=== PATIENT | male | born 1950 | race Caucasian/White ===

== ENCOUNTER 2022-09-13 08:17 | Emergency (ER) | payer OTHER, SELFPAY ==
[2022-09-13] VITALS (18 sets, daily range): BP systolic 125–144; BP diastolic 86–92; PULSE 81–97; RESP 20; TEMP 36.3; O2SAT 82–95; BMI 34.6
--- NOTE | 2022-09-13 08:41 | ED.GENADULT ---
HPI - General Adult General Chief complaint: Abdominal Pain Stated complaint: abdominal pain,bad taste in mouth Time Seen by Provider: 09/13/22 08:24 Source: patient Mode of arrival: ambulatory Limitations: no limitations History of Present Illness HPI narrative: [age] year male coming in today complaining of abdominal pain for approximately 2 days. States that the pain is located around the belly button area. Pain is constant but gets worse in waves. Nothing seems to make it better or worse. Has not been eating very much the last couple days because he has had a decreased appetite. He has a strong saw our taste in his mouth. States that about 1 week ago he was sick for about 2 days with diarrhea and hot and cold flashes. This seems to have resolved however the abdominal pain then started. He denies any blood in his urine or stools. He denies any urinary symptoms such as increased frequency urgency or dysuria. Has not been vomiting. He feels nauseated because of the taste in his mouth. He denies any fevers or chills in the last couple of days. Last bowel movement was yesterday and was firm and small. He is passing gas normally. He denies intra-abdominal surgeries in the past. Past medical history significant for obesity, hypertension, GERD, hyperlipidemia, allergies. Related Data Home Medications Medication Instructions Recorded Confirmed amlodipine 5 mg tablet 5 mg PO DAILY 09/13/22 09/13/22 azelastine 137 mcg (0.1 %) nasal 2 spray intranasal BID PRN 09/13/22 09/13/22 spray aerosol cetirizine 10 mg capsule (Zyrtec) 10 mg PO DAILY PRN 09/13/22 09/13/22 cholecalciferol (vitamin D3) 50 50 mcg PO DAILY 09/13/22 09/13/22 mcg (2,000 unit) capsule (Vitamin D3) hydrochlorothiazide 12.5 mg tablet 12.5 mg PO DAILY 09/13/22 09/13/22 losartan 100 mg tablet 100 mg PO DAILY 09/13/22 09/13/22 meloxicam 7.5 mg tablet 7.5 mg PO DAILY 09/13/22 09/13/22 pantoprazole 40 mg tablet,delayed 40 mg PO DAILY 09/13/22 09/13/22 release simvastatin 40 mg tablet 40 mg PO DAILY 09/13/22 09/13/22 Allergies Allergy/AdvReac Type Severity Reaction Status Date / Time codeine Allergy Verified 09/13/22 09:34 Penicillins Allergy Verified 09/13/22 09:34 Review of Systems Status of ROS: Reports: 10 or more systems reviewed and unremarkable except as noted in History and below [facility] Social History Smoking Status: Former smoker Do you use any of these nicotine containing products: None Second hand tobacco smoke exposure: No How often do you have a drink containing alcohol: 2-4 times a month How many standard drinks containing alcohol do you have on a typical day: 1 or 2 How often do you have six or more drinks on one occasion: Never AUDIT-C Alcohol total score: 2 Non-prescribed substance use: denies use Exam Narrative: Exam Narrative: Obese, well-developed patient in no acute distress. Alert and oriented. Answers questions appropriately. Mood and affect are appropriate. Thoughts are goal oriented and rational. No tangential or magical thinking noted. Patient speaks in full sentences without needing to catch his breath. HEENT: Normocephalic atraumatic. Pupils are equally round reactive to light. Extraocular muscles are intact. Conjunctivae are moist without any icterus noted. Moist mucous membranes. Posterior pharynx is normal. Neck is soft without any lymphadenopathy or thyromegaly. No masses are appreciated. Cardiovascular: Heart is regular rate and rhythm S1 and S2 are present without any murmurs. Lungs: Clear to auscultation bilaterally no wheezes rhonchi or rales are appreciated. Patient takes deep breaths without any discomfort. Abdomen: Protuberant and soft. He has normal bowel sounds. He has left lower quadrant tenderness. He does have tenderness around the umbilicus and the right lower quadrant however the tenderness in the left lower quadrant is more significant. He has no epigastric tenderness, negative Mosley sign. Extremities: Bilateral lower extremities are without edema. Normal DP and PT pulses. Skin: Well perfused without any obvious rashes. Const: Vital Signs, click to edit/add: Vital Signs - 24 hr 09/13/22 08:24 09/13/22 08:37 09/13/22 08:47 Temperature 97.3 F L Pulse Rate 91 Pulse Rate [Pulse Oximeter] 91 Respiratory Rate 20 Blood Pressure 133/90 H Blood Pressure [Le ft Upper Arm] 144/92 H Pulse Oximetry 94 92 Oxygen Delivery Me thod Room Air 09/13/22 09:05 09/13/22 09:30 09/13/22 09:31 Temperature Pulse Rate 97 86 84 Pulse Rate [Pulse Oximeter] Respiratory Rate Blood Pressure 136/90 H Blood Pressure [Le ft Upper Arm] Pulse Oximetry 95 91 88 Oxygen Delivery Me thod 09/13/22 10:00 09/13/22 10:02 09/13/22 10:56 Temperature Pulse Rate 87 89 86 Pulse Rate [Pulse Oximeter] Respiratory Rate Blood Pressure 137/87 Blood Pressure [Le ft Upper Arm] Pulse Oximetry 82 L 94 93 Oxygen Delivery Me thod 09/13/22 11:00 09/13/22 11:01 Temperature Pulse Rate 89 88 Pulse Rate [Pulse Oximeter] Respiratory Rate Blood Pressure 131/90 H Blood Pressure [Le ft Upper Arm] Pulse Oximetry 92 93 Oxygen Delivery Me thod Course Course Hospital Course: Lab work was unremarkable. Abdominal CT scan showed liver lesions and lower lung lesions consistent with inflammatory changes versus neoplasm. When I discussed these findings with the patient he tells me that his primary care provider once thought he had tuberculosis. This could certainly reflect what we are seeing a scans today. I did do a lung CT for further imaging of the lungs. That shows multiple ground-glass lesions scattered throughout the lungs and a repeat CT scan is recommended. As far as abdominal pain nothing visualized to explain his discomfort. We discussed that likely with his diarrhea he could have continued abdominal cramping and we discussed symptomatic treatment at this time. Vital Signs Vital signs: Initial Vital Signs Temperature 97.3 F L 09/13/22 08:24 Temperature Source Temporal Artery Scan 09/13/22 08:24 Pulse Rate 91 09/13/22 08:24 Pulse Rhythm Regular 09/13/22 08:24 Respiratory Rate 20 09/13/22 08:24 Blood Pressure 144/92 H 09/13/22 08:24 Blood Pressure Mean 109 09/13/22 08:24 Blood Pressure Position Semi-Fowlers 09/13/22 08:24 Pulse Oximetry 94 09/13/22 08:24 Oxygen Delivery Method Room Air 09/13/22 08:24 Vital Signs Temperature 97.3 F L 09/13/22 08:24 Pulse Rate 91 09/13/22 08:24 Respiratory Rate 20 09/13/22 08:24 Blood Pressure 144/92 H 04/07/23 08:24 Pulse Oximetry 94 09/13/22 08:24 Oxygen Delivery Method Room Air 09/13/22 08:24 Temperature 97.3 F L 09/13/22 08:24 Pulse Rate 88 09/13/22 11:01 Respiratory Rate 20 09/13/22 08:24 Blood Pressure 131/90 H 09/13/22 11:01 Pulse Oximetry 93 09/13/22 11:01 Oxygen Delivery Method Room Air 09/13/22 08:24 Medical Decision Making MDM Narrative Medical decision making narrative: 71-year-old male with abdominal pain of unclear etiology. We discussed symptomatic treatment for now. We discussed reasons for follow-up. Patient will be discharged home with his labs and reports of his imaging follow-up with his primary care provider to discuss next steps. Patient was agreeable and had no other questions. Lab Data Lab results reviewed: Yes I reviewed the patient's lab results Labs: Lab Results 09/13/22 09/13/22 Range/Units 08:50 08:55 WBC 5.20 (4.50-11.00) K/uL RBC 5.11 (4.30-5.90) m/uL Hgb 15.8 (13.5-17.5) gm/dL Hct 46.6 (37.0-53.0) % MCV 91 (80-100) fL MCH 31 (26-34) pg MCHC 34 (32-36) gm/dL RDW Coeff of [place] 12.3 (11.5-15.5) % Plt Count 160 (140-440) K/uL Neut % (Auto) 54.8 (42.0-72.0) % Lymph % (Auto) 34.4 (20-44) % [place] % (Auto) 10.2 (0.0-11.0) % Eos % (Auto) 0.2 (0.0-7.0) % Baso % (Auto) 0.2 (0.0-3.0) % Neut # (Auto) 2.85 (1.7-7.0) K/uL Lymph # (Auto) 1.79 (0.90-2.90) K/uL [place] # (Auto) 0.50 (0.00-0.90) K/UL Eos # (Auto) 0.01 (0.00-0.50) K/uL Baso # (Auto) 0.01 (0.00-0.30) K/uL ESR 9 (2-15) mm/hr Sodium 134 L (135-149) mmol/L Potassium 3.6 (3.6-5.1) mmol/L Chloride 100 (96-114) mmol/L Carbon Dioxide 27 (20-32) mmol/L BUN 22 (7-30) mg/dL Creatinine 1.2 (0.5-1.5) mg/dL Estimated Creat Clear 56.46 Estimated GFR 65 ml/min Glucose 101 (60-115) mg/dL Lactate 1.0 (0.5-1.9) mmol/L Calcium 9.1 (8.4-10.6) mg/dL Total Bilirubin 0.5 (0.1-1.5) mg/dL Direct Bilirubin 0.2 (0.0-0.5) mg/dL AST 39 H (12-35) U/L ALT 32 (4-50) U/L Alkaline Phosphatase 54 (40-150) U/L C-Reactive Protein 2.0 H (0.5-1.0) mg/dL Total Protein 7.3 (6.0-8.3) g/dL Albumin 4.2 (3.3-5.0) g/dL Lipase 209 (23-300) U/L Urine Color Yellow (Yellow) Urine Appearance Clear (Clear) Urine pH 6.0 (5.0-8.5) Ur Specific [place] 1.025 (1.000-1.030) Urine Protein Negative (Negative) Urine Glucose (UA) Negative (Negative) Urine Ketones Negative (Negative) Urine Blood Trace-intact A (Negative) Urine Nitrite Negative (Negative) Urine Bilirubin Negative (Negative) Urine Urobilinogen 0.2 (0.2-1.0) Ur Leukocyte Esterase Negative (Negative) Urine RBC 0-2 (0-2) Urine WBC 0-2 (0-5) Ur Squamous Epith Cells None (None-Few) Urine Bacteria None (None) Imaging Data CT scan - abdomen: Attestation: I have reviewed the pertinent imaging results. Radiologist's impression: CT abdomen and pelvis acquired with 100 cc Isovue 370 IV contrast. COMPARISON: None. FINDINGS: Lower chest: There are multifocal ground-glass nodules/opacities measuring up to 1.5 centimeters in diameter. Differential diagnosis includes infectious, inflammatory and neoplastic processes. Pulmonology consultation and follow-up CT scan in 3-6 months as per Fleischner criteria guidelines is recommended. Liver: There is a 12 millimeters cyst within the left hepatic lobe (image 22, series 2). There are 2 other low-density lesions within the left hepatic lobe which are too small to accurately characterize. There is a focal area of hypoenhancement within the anterior segment of the right hepatic lobe. This measures approximately 4.5 centimeters x 1.5 centimeters (images 17 through 25, series 2). Differential diagnosis includes focal hepatic steatosis as well as other focal hepatic lesions including neoplasm. Further evaluation with nonemergent MRI of the liver is recommended. Gallbladder and bile ducts: Unremarkable. No stones or inflammation. No biliary dilatation. Pancreas: Unremarkable. No mass or inflammation. Spleen: Unremarkable. Normal in size. No masses. Adrenal glands: Unremarkable. No nodules. Kidneys: Symmetric enhancement of both kidneys. 12 millimeter right renal cyst. Too small to accurately characterize low-density lesions within the left kidney interpolar region and lower pole. No renal stone or hydronephrosis. GI tract: Diverticulosis of the distal descending and sigmoid colon. No diverticulitis or colitis. The stomach and small bowel are unremarkable. Normal appendix. Vasculature: Abdominal aorta is normal in caliber. Mesenteric arteries are patent. Lymph nodes: No lymphadenopathy. Peritoneum/Abdominal Wall: No abdominal pelvic mass, free fluid or free intraperitoneal air. There is a small left inguinal hernia containing fat. No bowel containing hernia. Pelvis: The urinary bladder and prostate are unremarkable. Bones: Degenerative spondylosis of the lumbar spine and degenerative arthrosis of both hips. No acute fracture or suspicious bone lesion. IMPRESSION: 1. Bilateral basilar multifocal ground-glass lung nodules/opacities. Differential diagnosis includes infectious, inflammatory and neoplastic processes. Pulmonology consultation and follow-up CT scan in 3-6 months as per Fleischner criteria guidelines is recommended. 2. Hepatic cyst and too small to accurately characterize hepatic low-density lesions. 3. Focal hypoenhancement within the anterior segment of the right hepatic lobe measuring 4.5 centimeter x 1.7 centimeter. Differential diagnosis includes focal hepatic steatosis as well as other focal hepatic lesions including neoplasm. Further evaluation with nonemergent MRI of the liver is recommended. 4. Left renal cyst and too small to accurately characterize left renal low-density lesions. 5. Colonic diverticulosis. 6. Left inguinal hernia containing fat. CT scan - chest: Attestation: I have reviewed the pertinent imaging results. Radiologist's impression: CT chest without contrast. COMPARISON: CT scan of the abdomen and pelvis 09/13/2022. FINDINGS: Lungs and pleura: There are numerous ground-glass nodules/focal opacities scattered throughout both lungs. These measure up to 2 centimeters in diameter and are most prominent in the lower lung zones. No solid pulmonary nodule or pulmonary consolidation is identified. No pleural effusions, pleural thickening, or pneumothorax. Heart and vasculature: Heart size is normal. Thoracic aorta and pulmonary artery are normal in caliber. Mild atherosclerosis of the thoracic aorta. Lymph nodes/mediastinum: There are small and mildly prominent mediastinal noncalcified lymph nodes and small calcified subcarinal lymph nodes. No hilar lymphadenopathy. No axillary lymphadenopathy. Chest wall: No masses. Upper abdomen: Indeterminate hepatic low-density lesions. Please refer to abdominopelvic CT report. Bones: No acute bone or joint abnormality. 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 IMPRESSION: 1. Numerous bilateral ground-glass nodules/focal opacities scattered throughout both lungs. Differential diagnosis includes infectious, inflammatory and neoplastic processes. Pulmonology consultation and follow-up CT scan in 3-6 months as per Fleischner criteria guidelines is recommended. 2. Small and mildly prominent noncalcified mediastinal and small calcified subcarinal lymph nodes. Discharge Plan Discharge Clinical Impression: Abdominal pain Patient Disposition: Home, Self-Care Condition: Stable Additional Instructions: Your blood work was unremarkable today showing no evidence of infection or organ dysfunction. Your scans did show some lesions on the lungs and liver, he unfortunately I do not have anything to compare this to. So I do want you to take these reports back to your primary care provider and discuss the results and discuss next steps if any are necessary. He will be given a copy of your scan reports as well as all your lab work done today. Prescriptions: No Action losartan 100 mg tablet 100 mg PO DAILY meloxicam 7.5 mg tablet 7.5 mg PO DAILY azelastine 137 mcg (0.1 %) aerosol,spray 2 spray intranasal BID PRN Rx Instructions: administer into each nostril Zyrtec 10 mg capsule 10 mg PO DAILY PRN pantoprazole 40 mg tablet,delayed release (DR/EC) 40 mg PO DAILY hydrochlorothiazide 12.5 mg tablet 12.5 mg PO DAILY simvastatin 40 mg tablet 40 mg PO DAILY amlodipine 5 mg tablet 5 mg PO DAILY cholecalciferol (vitamin D3) [Vitamin D3] 50 mcg (2,000 unit) capsule 50 mcg PO DAILY Follow Up/Referrals: Provider,Not a Local [Primary Care Provider] - Stand Alone Forms: [employer] Info Instructions
[2022-09-13 09:02] LABS: Basophils Absolute Auto 0.01 K/uL (0.00-0.30); Basophils Percent Auto 0.2 % (0.0-3.0); Eosinophils Absolute Auto 0.01 K/uL (0.00-0.50); Eosinophils Percent Auto 0.2 % (0.0-7.0); Hematocrit 46.6 % (37.0-53.0); Hemoglobin* 15.8 gm/dL (13.5-17.5); Immature Granulocytes Abs Auto 0.01 K/uL (0.00-0.30); Immature Granulocytes Pct Auto 0.2 %; Lymphocytes Absolute Auto 1.79 K/uL (0.90-2.90); Lymphocytes Percent Auto 34.4 % (20-44); Mean Corpuscular HGB Conc 34 gm/dL (32-36); Mean Corpuscular Hemoglobin 31 pg (26-34); Mean Corpuscular Volume 91 fL (80-100); Monocytes Percent Auto 10.2 % (0.0-11.0); Neutrophils Absolute Auto 2.85 K/uL (1.7-7.0); Neutrophils Percent Auto 54.8 % (42.0-72.0); Platelet Count* 160 K/uL (140-440); RDW Coefficient of Variation % 12.3 % (11.5-15.5); Red Blood Count 5.11 m/uL (4.30-5.90)
[2022-09-13 09:08] LABS: Appearance Urine Clear (Clear); Bilirubin Urine Negative (Negative); Blood Urine Trace-intact (Negative); Color Urine Yellow (Yellow); Glucose Urine Negative (Negative); Ketones Urine Negative (Negative); Leukocyte Esterase Urine Negative (Negative); Nitrite Urine Negative (Negative); Protein Urine Negative (Negative); Specific Gravity Urine 1.025 (1.000-1.030); Urobilinogen Urine 0.2 (0.2-1.0)
[2022-09-13] MEDS: 0.9 % SODIUM CHLORIDE 500 ML 500 ML IV (09:08)
[2022-09-13 09:15] LABS: Slide Review Reflex No
[2022-09-13 09:19] LABS: Albumin* 4.2 g/dL (3.3-5.0); Chloride* 100 mmol/L (96-114)
[2022-09-13 09:20] LABS: Potassium* 3.6 mmol/L (3.6-5.1); Sodium* 134 mmol/L (135-149)
[2022-09-13 09:22] LABS: Creatinine* 1.2 mg/dL (0.5-1.5); Est. Creatinine Clearance* 56.46; Estimated Glomerular Filt Rate 65 ml/min
[2022-09-13 09:23] LABS: Alanine Aminotransferase* 32 U/L (4-50); Alkaline Phosphatase* 54 U/L (40-150); Aspartate Amino Transferase* 39 U/L (12-35); Bilirubin Direct* 0.2 mg/dL (0.0-0.5); Bilirubin Total* 0.5 mg/dL (0.1-1.5); Blood Urea Nitrogen* 22 mg/dL (7-30); Calcium* 9.1 mg/dL (8.4-10.6); Carbon Dioxide* 27 mmol/L (20-32); Glucose* 101 mg/dL (60-115); Lipase* 209 U/L (23-300); Total Protein* 7.3 g/dL (6.0-8.3)
[2022-09-13 09:25] LABS: RBC Urine 0-2 (0-2); WBC Urine 0-2 (0-5)
[2022-09-13 10:06] LABS: Erythrocyte SedimentationRate* 9 mm/hr (2-15)
--- NOTE | 2022-09-13 10:55 | CRLHL7_ITS ---
For Patients: As a result of the Century Cures Act, medical imaging exams and procedure reports are released immediately into your electronic medical record. You may view this report before your referring provider. If you have questions, please contact your health care provider. INDICATION: Pulmonary lesions seen on recent abdominal CT. TECHNIQUE: CT chest without contrast. COMPARISON: CT scan of the abdomen and pelvis 09/13/2022. FINDINGS: Lungs and pleura: There are numerous ground-glass nodules/focal opacities scattered throughout both lungs. These measure up to 2 centimeters in diameter and are most prominent in the lower lung zones. No solid pulmonary nodule or pulmonary consolidation is identified. No pleural effusions, pleural thickening, or pneumothorax. Heart and vasculature: Heart size is normal. Thoracic aorta and pulmonary artery are normal in caliber. Mild atherosclerosis of the thoracic aorta. Lymph nodes/mediastinum: There are small and mildly prominent mediastinal noncalcified lymph nodes and small calcified subcarinal lymph nodes. No hilar lymphadenopathy. No axillary lymphadenopathy. Chest wall: No masses. Upper abdomen: Indeterminate hepatic low-density lesions. Please refer to abdominopelvic CT report. Bones: No acute bone or joint abnormality. 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 IMPRESSION: 1. Numerous bilateral ground-glass nodules/focal opacities scattered throughout both lungs. Differential diagnosis includes infectious, inflammatory and neoplastic processes. Pulmonology consultation and follow-up CT scan in 3-6 months as per Fleischner criteria guidelines is recommended. 2. Small and mildly prominent noncalcified mediastinal and small calcified subcarinal lymph nodes. Please note that all CT scans at this facility use dose modulation, iterative reconstruction, and/or weight-based dosing when appropriate to reduce radiation dose to as low as reasonably achievable. Dictated by Shane Mcgrath MD @ 09/13/2022 12:25:38 PM (Electronically Signed)
== END 2022-09-13 13:03 | disposition home or self-care (01) ==
PROVIDERS: Emergency Provider Family Medicine
DX: R10.9 Unspecified abdominal pain (principal)
CPT/HCPCS: 36415; 71250; 74177; 80048; 80076; 81001; 83605; 83690; 85025; 85651; 86140; 87086; 99284; J7120; Q9967

== ENCOUNTER 2022-09-19 10:03 | Emergency (ER) | payer OTHER, SELFPAY ==
[2022-09-19] VITALS (14 sets, daily range): BP systolic 133–146; BP diastolic 78–99; PULSE 77–91; RESP 18–20; TEMP 36.4; O2SAT 92–97; BMI 34.7
--- NOTE | 2022-09-19 10:26 | CRLHL7_ITS ---
For Patients: As a result of the Cures Act, medical imaging exams and procedure reports are released immediately into your electronic medical record. You may view this report before your referring provider. If you have questions, please contact your health care provider. INDICATION: Abdominal pain. COMPARISON: CT abdomen and pelvis with intravenous contrast September 13, 2022. TECHNIQUE: CT abdomen and pelvis with intravenous contrast semi: Coronal and sagittal reformats. FINDINGS: Multiple patchy alveolar infiltrates both lung bases much more pronounced when compared to September 13, 2022; COVID-19 pneumonia need to be considered. No evidence of pleural effusion. Normal size cardiac silhouette without any evidence of pericardial effusion. Multiple small cystic lesions in the dome of the liver ;stable in appearance. No focal hepatic or splenic pathology. No pancreatic pathology. Gallbladder is unremarkable. No adrenal pathology. No kidney stones or obstructive uropathy. No retroperitoneal lymphadenopathy. Normal appendix. Diverticulosis sigmoid colon without any CT evidence of diverticulitis or abscess. No pneumoperitoneum or intestinal obstruction. IMPRESSION: 1. Patchy alveolar infiltrates both lung bases highly suggestive of COVID-19 pneumonia. 2. No kidney stones or obstructive uropathy. 3. Normal appendix. 4. Diverticulosis sigmoid colon without any CT evidence of diverticulitis or abscess. Please note that all CT scans at this facility use dose modulation, iterative reconstruction, and/or weight-based dosing when appropriate to reduce radiation dose to as low as reasonably achievable. Dictated by Lovely Chavez MD @ 09/19/2022 12:30:58 PM (Electronically Signed)
--- NOTE | 2022-09-19 10:34 | ED.NAVMDI ---
HPI - Nausea/Vomiting/Diarrhea General Chief complaint: Nausea/Vomiting Stated complaint: Vomiting, abdominal pain Time Seen by Provider: 09/19/22 10:03 History of Present Illness HPI Narrative: Patient is a 71-year-old gentleman who is here 6 days ago with abdominal pain nausea and vomiting. He was evaluated in no acute etiologies were noted. Patient did have some ground-glass opacities as well as chronic appearing liver lesions. Patient was discharged home symptomatic treatment and has not felt well ever since. He presents today with worsening of his nausea general malaise weakness and fatigue he has had no blood in his stool he did vomit earlier today and mostly is just nauseous. He does complain of diffuse abdominal pain with no localization. Patient has had no fevers no chills no chest pain no shortness of breath. Patient's symptoms are very ill-defined been largely similar to what they were a week ago during that presentation. Related Data Home Medications Medication Instructions Recorded Confirmed amlodipine 5 mg tablet 5 mg PO DAILY 09/13/22 09/13/22 azelastine 137 mcg (0.1 %) nasal 2 spray intranasal BID PRN 09/13/22 09/13/22 spray aerosol cetirizine 10 mg capsule (Zyrtec) 10 mg PO DAILY PRN 09/13/22 09/13/22 cholecalciferol (vitamin D3) 50 50 mcg PO DAILY 09/13/22 09/13/22 mcg (2,000 unit) capsule (Vitamin D3) hydrochlorothiazide 12.5 mg tablet 12.5 mg PO DAILY 09/13/22 09/13/22 losartan 100 mg tablet 100 mg PO DAILY 09/13/22 09/13/22 meloxicam 7.5 mg tablet 7.5 mg PO DAILY 09/13/22 09/13/22 pantoprazole 40 mg tablet,delayed 40 mg PO DAILY 09/13/22 09/13/22 release simvastatin 40 mg tablet 40 mg PO DAILY 09/13/22 09/13/22 Previous Rx's Medication Instructions Recorded nirmatrelvir 300 mg (150 mg See Rx Instructions PO .COMPLEX 09/19/22 x2)-ritonavir 100 mg tablet,dose COVID-19 #30 ea pack(EUA) (Paxlovid) ondansetron 4 mg disintegrating 4 mg PO DAILY PRN nausea and 09/19/22 tablet vomiting 5 days #14 tabs Allergies Allergy/AdvReac Type Severity Reaction Status Date / Time codeine AdvReac Intermediate Verified 09/19/22 10:09 NSAIDS (Non-Steroidal AdvReac Intermediate Verified 09/19/22 10:08 Anti-Inflamma Penicillins AdvReac Intermediate Verified 09/19/22 10:09 Review of Systems Status of ROS: Reports: 10 or more systems reviewed and unremarkable except as noted in History and below PFSH [facility] Medical History GERD (gastroesophageal reflux disease) ?K21.9 - Gastro-esophageal reflux disease without esophagitis (ICD-10) Hyperlipidemia ?E78.5 - Hyperlipidemia, unspecified (ICD-10) Hypertension ?I10 - Essential (primary) hypertension (ICD-10) Social History Smoking Status: Former smoker Do you use any of these nicotine containing products: None Second hand tobacco smoke exposure: No How often do you have a drink containing alcohol: 2-4 times a month How many standard drinks containing alcohol do you have on a typical day: 1 or 2 How often do you have six or more drinks on one occasion: Never AUDIT-C Alcohol total score: 2 Non-prescribed substance use: denies use Exam Narrative: Exam Narrative: EXAM GENERAL: Patient appears comfortable and well. EYES: No scleral icterus. ENT: Tympanic membranes and oropharynx normal. THYROID: no thyroid nodules or thyromegaly. LYMPH: No supraclavicular or cervical lymphadenopathy. SKIN: Visible skin seen during exam normal or with benign process only. EXT: No dependent lower extremity pedal edema. HEART: Regular rate and rhythm with no murmurs, rubs, or gallops. LUNGS: Clear to auscultation bilaterally with no crackles or wheezes. ABD: Soft, non tender, non distended. PSYCH: Good eye contact, speech is not pressured. Const: Vital Signs, click to edit/add: Vital Signs - 24 hr 09/19/22 10:09 09/19/22 11:38 Temperature 97.6 F Pulse Rate [Pulse Oximeter] 86 84 Respiratory Rate 20 18 Blood Pressure [Ri ght Upper Arm] 146/99 H 134/91 H Pulse Oximetry 96 96 Oxygen Delivery Me thod Room Air Room Air Course Course Hospital Course: Patient is a 71-year-old gentleman returning after roughly a week at home not feeling well with general malaise body aches and fatigue. Workup today is unremarkable with the exception of the does test positive for COVID-19 and he does have worsening ground-glass opacification in his lung bases. Patient was treated with normal saline and Zofran. We did inform him of his diagnosis and he will quarantine for 5 days and wear mask for additional 5 days. I did send in a prescription for Paxlovid as well as Zofran and recommended follow-up with primary care. Vital Signs Vital signs: Initial Vital Signs Temperature 97.6 F 09/19/22 10:09 Temperature Source Oral 09/19/22 10:09 Pulse Rate 86 09/19/22 10:09 Respiratory Rate 20 09/19/22 10:09 Blood Pressure 146/99 H 09/19/22 10:09 Blood Pressure Mean 114 09/19/22 10:09 Blood Pressure Position Sitting 09/19/22 10:09 Pulse Oximetry 96 09/19/22 10:09 Oxygen Delivery Method Room Air 09/19/22 10:09 Vital Signs Temperature 97.6 F 09/19/22 10:09 Pulse Rate 86 09/19/22 10:09 Respiratory Rate 20 09/19/22 10:09 Blood Pressure 146/99 H 09/19/22 10:09 Pulse Oximetry 96 09/19/22 10:09 Oxygen Delivery Method Room Air 09/19/22 10:09 Temperature 97.6 F 09/19/22 10:09 Pulse Rate 84 09/19/22 11:38 Respiratory Rate 18 09/19/22 11:38 Blood Pressure 134/91 H 09/19/22 11:38 Pulse Oximetry 96 09/19/22 11:38 Oxygen Delivery Method Room Air 09/19/22 11:38 MDM - Nausea/Vomiting/Diarrhea MDM Narrative Medical decision making narrative: As above Differential Diagnosis Differential diagnosis: Likely traveler's diarrhea, food poisoning, gastroenteritis, clostridium difficile infection, drug-induced nausea and vomiting and dehydration Lab Data Labs: Lab Results 09/19/22 09/19/22 09/19/22 Range/Units 10:26 10:36 12:28 WBC 8.04 (4.50-11.00) K/uL RBC 4.96 (4.30-5.90) m/uL Hgb 15.2 (13.5-17.5) gm/dL Hct 45.4 (37.0-53.0) % MCV 92 (80-100) fL MCH 31 (26-34) pg MCHC 34 (32-36) gm/dL RDW Coeff of Rodriguez 11.9 (11.5-15.5) % Plt Count 284 (140-440) K/uL Neut % (Auto) 66.7 (42.0-72.0) % Lymph % (Auto) 21.4 (20-44) % [place] % (Auto) 9.8 (0.0-11.0) % Eos % (Auto) 1.7 (0.0-7.0) % Baso % (Auto) 0.0 (0.0-3.0) % Neut # (Auto) 5.36 (1.7-7.0) K/uL Lymph # (Auto) 1.72 (0.90-2.90) K/uL [place] # (Auto) 0.80 (0.00-0.90) K/UL Eos # (Auto) 0.14 (0.00-0.50) K/uL Baso # (Auto) 0.00 (0.00-0.30) K/uL Sodium 140 (135-149) mmol/L Potassium 3.9 (3.6-5.1) mmol/L Chloride 108 (96-114) mmol/L Carbon Dioxide 27 (20-32) mmol/L BUN 18 (7-30) mg/dL Creatinine 0.9 (0.5-1.5) mg/dL Estimated Creat Clear 67.75 Estimated GFR 91 ml/min Glucose 106 (60-115) mg/dL Calcium 9.0 (8.4-10.6) mg/dL Total Bilirubin 0.9 (0.1-1.5) mg/dL AST 27 (12-35) U/L ALT 22 (4-50) U/L Alkaline Phosphatase 56 (40-150) U/L Troponin I < 0.01 L (0.01-0.04) ng/mL Total Protein 7.1 (6.0-8.3) g/dL Albumin 3.9 (3.3-5.0) g/dL Amylase 93 H (18-89) U/L Urine Color Dark yellow (Yellow) Urine Appearance Clear (Clear) Urine pH 7.5 (5.0-8.5) Ur Specific [place] 1.020 (1.000-1.030) Urine Protein Trace A (Negative) Urine Glucose (UA) Negative (Negative) Urine Ketones Negative (Negative) Urine Blood Negative (Negative) Urine Nitrite Negative (Negative) Urine Bilirubin Negative (Negative) Urine Urobilinogen 0.2 (0.2-1.0) Ur Leukocyte Esterase Negative (Negative) Urine RBC 0-2 (0-2) Urine WBC 0-2 (0-5) Ur Squamous Epith Cells None (None-Few) Urine Bacteria None (None) SARS-CoV-2 (PCR) POSITIVE SARS-CoV-2 A (Negative) Influenza Type A (PCR) Negative PCR FLU A (Negative) Influenza Type B (PCR) Negative PCR FLU B (Negative) Discharge Plan Discharge Clinical Impression: COVID-19 Patient Disposition: Home, Self-Care Condition: Stable Instructions: COVID-19 (Coronavirus Disease 2019) (ED) Additional Instructions: Paxlovid and Zofran as directed Tylenol Motrin Isolation Fluids Hold statin while on Paxlovid Activity Level: No Restrictions Discharge Diet: Regular Prescriptions: New Paxlovid (EUA) 300 mg (150 mg x 2)-100 mg tablets,dose pack See Rx Instructions .ROUTE .COMPLEX Qty: 30 0RF Rx Instructions: take TWO 150 mg tablets of nirmatrelvir with ONE 100 mg tablet of ritonavir twice daily for 5 days ondansetron 4 mg tablet,disintegrating 4 mg PO DAILY PRN (Reason: nausea and vomiting) 5 Days Qty: 14 0RF No Action losartan 100 mg tablet 100 mg PO DAILY meloxicam 7.5 mg tablet 7.5 mg PO DAILY azelastine 137 mcg (0.1 %) aerosol,spray 2 spray intranasal BID PRN Rx Instructions: administer into each nostril Zyrtec 10 mg capsule 10 mg PO DAILY PRN pantoprazole 40 mg tablet,delayed release (DR/EC) 40 mg PO DAILY hydrochlorothiazide 12.5 mg tablet 12.5 mg PO DAILY simvastatin 40 mg tablet 40 mg PO DAILY amlodipine 5 mg tablet 5 mg PO DAILY cholecalciferol (vitamin D3) [Vitamin D3] 50 mcg (2,000 unit) capsule 50 mcg PO DAILY Follow Up/Referrals: Provider,Not a Local [Referring] - Stand Alone Forms: [facility] Info Instructions
[2022-09-19] MEDS: 0.9 % SODIUM CHLORIDE 1000 ml 1,000 ML IV (10:44)
[2022-09-19] MEDS: ONDANSETRON 2 MG/ML inj 4 MG IVP (10:44)
[2022-09-19 10:47] LABS: Appearance Urine Clear (Clear); Bilirubin Urine Negative (Negative); Blood Urine Negative (Negative); Color Urine Dark yellow (Yellow); Glucose Urine Negative (Negative); Ketones Urine Negative (Negative); Leukocyte Esterase Urine Negative (Negative); Nitrite Urine Negative (Negative); Protein Urine Trace (Negative); Urobilinogen Urine 0.2 (0.2-1.0); pH Urine 7.5 (5.0-8.5)
[2022-09-19 10:48] LABS: Eosinophils Absolute Auto 0.14 K/uL (0.00-0.50); Eosinophils Percent Auto 1.7 % (0.0-7.0); Hematocrit 45.4 % (37.0-53.0); Hemoglobin* 15.2 gm/dL (13.5-17.5); Immature Granulocytes Abs Auto 0.03 K/uL (0.00-0.30); Immature Granulocytes Pct Auto 0.4 %; Lymphocytes Absolute Auto 1.72 K/uL (0.90-2.90); Lymphocytes Percent Auto 21.4 % (20-44); Mean Corpuscular HGB Conc 34 gm/dL (32-36); Mean Corpuscular Hemoglobin 31 pg (26-34); Mean Corpuscular Volume 92 fL (80-100); Monocytes Percent Auto 9.8 % (0.0-11.0); Neutrophils Absolute Auto 5.36 K/uL (1.7-7.0); Neutrophils Percent Auto 66.7 % (42.0-72.0); Platelet Count* 284 K/uL (140-440); RDW Coefficient of Variation % 11.9 % (11.5-15.5); Red Blood Count 4.96 m/uL (4.30-5.90); White Blood Count* 8.04 K/uL (4.50-11.00)
[2022-09-19 11:01] LABS: RBC Urine 0-2 (0-2); WBC Urine 0-2 (0-5)
[2022-09-19 11:04] LABS: Slide Review Reflex No
[2022-09-19 11:07] LABS: Albumin* 3.9 g/dL (3.3-5.0); Chloride* 108 mmol/L (96-114); Potassium* 3.9 mmol/L (3.6-5.1); Sodium* 140 mmol/L (135-149)
[2022-09-19 11:09] LABS: Amylase* 93 U/L (18-89); Carbon Dioxide* 27 mmol/L (20-32); Creatinine* 0.9 mg/dL (0.5-1.5); Est. Creatinine Clearance* 67.75; Estimated Glomerular Filt Rate 91 ml/min
[2022-09-19 11:10] LABS: Alanine Aminotransferase* 22 U/L (4-50); Alkaline Phosphatase* 56 U/L (40-150); Aspartate Amino Transferase* 27 U/L (12-35); Bilirubin Total* 0.9 mg/dL (0.1-1.5); Blood Urea Nitrogen* 18 mg/dL (7-30); Glucose* 106 mg/dL (60-115); Total Protein* 7.1 g/dL (6.0-8.3)
[2022-09-19 11:21] LABS: Troponin I* < 0.01 ng/mL (0.01-0.04)
[2022-09-19 13:21] LABS: PCR FLU A Negative PCR FLU A (Negative); PCR FLU B Negative PCR FLU B (Negative)
[2022-09-19 13:24] LABS: SARS PCR* POSITIVE SARS-CoV-2 (Negative)
== END 2022-09-19 13:50 | disposition home or self-care (01) ==
PROVIDERS: Emergency Provider Internal Medicine; PCP Family Medicine
DX: U07.1 COVID-19 (principal)
CPT/HCPCS: 36415; 74177; 80053; 81003; 81015; 82150; 84484; 85025; 87631; 93005; 99283; 99285; J2405; J7030; Q9967

== ENCOUNTER 2023-06-03 02:41 | Emergency (ER) | payer OTHER, SELFPAY ==
[2023-06-03 02:44] VITALS: BP 125/82; PULSE 120; RESP 18; TEMP 35.9; O2SAT 94
--- NOTE | 2023-06-03 03:08 | ED_ITS ---
HPI - General Adult General Chief complaint: Nausea/Vomiting Stated complaint: Nauseous-Muscle contractions-seizures Time Seen by Provider: 06/03/23 02:54 Source: patient and family Mode of arrival: ambulatory History of Present Illness HPI narrative: 72-year-old male presents the emergency department with concern for possible kidney failure. Reports that he had a similar episode 10 years ago when he was prescribed what he describes as 3 NSAIDs at the same time. He has had nausea and vomiting for the last few hours, throwing up a total of 5 times. No fever. No hematemesis or bloody stools. He states that he has been having a jerking sensation that he notices as he 1st tries to fall asleep. He describes clearly what sounds like myoclonic jerking and it wakes him quickly. There is no tongue biting, no visible seizures, has witnessed these events. No loss of consciousness. No stroke-like symptoms. There was no loss of bowel or bladder function, no recent falls, trauma or injury. They do not describe any type of postictal state. He says that he had very similar episodes like that 10 years ago when he had the kidney failure. He is concerned that that is the route of the jerking. No new medication changes. Denies alcohol use. Denies drug use. Has still been eating and drinking normally. Reports that he has had a sleep study, probably about 10 years ago. He does snore but states that the sleep study was otherwise normal. Past medical history notable for hypertension, GERD, hyperlipidemia. Medications are accurate as reported. Nonsmoker. ROS notable for the generalized and GI symptoms as above, otherwise denies times 12 systems. Related Data Home Medications Medication Instructions Recorded Confirmed amlodipine 5 mg tablet 5 mg PO DAILY 09/13/22 09/13/22 azelastine 137 mcg (0.1 %) nasal 2 spray intranasal BID PRN 09/13/22 09/13/22 spray aerosol cetirizine 10 mg capsule (Zyrtec) 10 mg PO DAILY PRN 09/13/22 09/13/22 cholecalciferol (vitamin D3) 50 50 mcg PO DAILY 09/13/22 09/13/22 mcg (2,000 unit) capsule (Vitamin D3) hydrochlorothiazide 12.5 mg tablet 12.5 mg PO DAILY 09/13/22 09/13/22 losartan 100 mg tablet 100 mg PO DAILY 09/13/22 09/13/22 meloxicam 7.5 mg tablet 7.5 mg PO DAILY 09/13/22 09/13/22 pantoprazole 40 mg tablet,delayed 40 mg PO DAILY 09/13/22 09/13/22 release simvastatin 40 mg tablet 40 mg PO DAILY 09/13/22 09/13/22 Previous Rx's Medication Instructions Recorded nirmatrelvir 300 mg (150 mg See Rx Instructions PO .COMPLEX 09/19/22 x2)-ritonavir 100 mg tablet,dose COVID-19 #30 ea pack (Paxlovid) ondansetron 4 mg disintegrating 4 mg PO DAILY PRN nausea and 09/19/22 tablet vomiting 5 days #14 tabs Allergies Allergy/AdvReac Type Severity Reaction Status Date / Time codeine AdvReac Intermediate Verified 09/19/22 10:09 NSAIDS (Non-Steroidal AdvReac Intermediate Verified 09/19/22 10:08 Anti-Inflamma Penicillins AdvReac Intermediate Verified 09/19/22 10:09 [facility] Medical History Hyperlipidemia ?E78.5 - Hyperlipidemia, unspecified (ICD-10) GERD (gastroesophageal reflux disease) ?K21.9 - Gastro-esophageal reflux disease without esophagitis (ICD-10) Hypertension ?I10 - Essential (primary) hypertension (ICD-10) Social History Smoking Status: Former smoker Do you use any of these nicotine containing products: None Second hand tobacco smoke exposure: No How often do you have a drink containing alcohol: 2-4 times a month How many standard drinks containing alcohol do you have on a typical day: 1 or 2 How often do you have six or more drinks on one occasion: Never AUDIT-C Alcohol total score: 2 Non-prescribed substance use: denies use Exam Const: Vital Signs, click to edit/add: Vital Signs - 24 hr 06/03/23 02:44 Temperature 96.7 F L Pulse Rate [Left P ulse Oximeter] 120 H Respiratory Rate 18 Blood Pressure [Ri ght Upper Arm] 125/82 Pulse Oximetry 94 Oxygen Delivery Me thod Room Air Documenting provider has reviewed patient's vital signs: yes Common normals: no apparent distress and alert General appearance: cooperative and well kempt Other: Anxious but well groomed, well nourished. HENMT: Common normals: normocephalic and head/scalp atraumatic Head and scalp: normocephalic and atraumatic Face and sinus: normal facial exam Mouth: oral and palatal mucosa normal Throat: posterior oropharynx normal Eye: Common normals: conjunctivae normal General eye: normal appearance of both eyes Conjunctiva: conjunctiva(e) normal Neck & C-Spine: Common normals: full ROM, no lymphadenopathy and no meningeal signs Resp: Common normals: normal respiratory effort, no use of accessory muscles and clear to auscultation bilaterally Effort & inspection: able to speak in complete sentences Auscultation: clear to auscultation bilaterally Cardio: Common normals: regular rate, regular rhythm, S1 normal heart sound, S2 normal heart sound and no murmurs Rate: regular rate Rhythm: regular rhythm Heart sounds: S1 normal and S2 normal GI: Common normals: Normal to inspection, nondistended, normoactive bowel sounds present, soft to palpation, non-tender, no hepatosplenomegaly and no masses Palpation: soft and no hepatosplenomegaly Extremity: Common normals: normal capillary refill and no pedal edema Neuro: Common normals: moves all extremities and no focal motor deficits Sensorium/orientation: alert Meningeal signs: no meningeal signs Speech: speech normal Motor exam: strength 5/5 throughout and no tremor noted Psych: Appearance: well kempt Attitude: engaged Activity/motor behavior: appropriate eye contact Mood and affect: anxious Insight: fair Judgement: judgment good Skin: Common normals: no rashes or lesions noted General skin exam: no rashes or lesions noted Course Course ED Course: Nausea and vomiting with recent sleep triggered movement which sounds consistent with a myoclonic jerk and not seizures. Events witnessed by spouse as well. Patient concern with possible kidney failure. He does take high dose of angiotensin receptor [place]. Not currently using any NSAIDs. Patient would like labs performed. Comprehensive metabolic panel, COVID swab, CBC, CRP ordered. Will monitor in the ED and give 1 L of normal saline. Give 4 mg of IV Zofran. Await findings. If inconclusive, would recommend an outpatient sleep study. Reevaluation(s) Time of Reevaluation #1: 04:21 Reevaluation #1: Discussed findings with patient. No observable signs of seizure or further myoclonic jerks here in the ED. All labs reassuring. Nausea improved with the Zofran. He has got about 20 more minutes on fluid. All questions answered. I have recommended an outpatient sleep study to further evaluate symptoms and if that is inconclusive, consider neurology consult. He may continue taking all of his medications as prescribed. He requests something for sleep. I have given a limited supply of Flexeril to use at bedtime as needed and have discussed with him that any long-term supply would need to come from a primary care provider if they feel this is appropriate. Vital Signs Vital signs: Initial Vital Signs Temperature 96.7 F L 06/03/23 02:44 Temperature Source Temporal Artery Scan 06/03/23 02:44 Pulse Rate 120 H 06/03/23 02:44 Pulse Rhythm Regular 06/03/23 02:44 Respiratory Rate 18 06/03/23 02:44 Blood Pressure 125/82 06/03/23 02:44 Blood Pressure Mean 96 06/03/23 02:44 Blood Pressure Position Sitting 06/03/23 02:44 Pulse Oximetry 94 06/03/23 02:44 Oxygen Delivery Method Room Air 06/03/23 02:44 Vital Signs Temperature 96.7 F L 06/03/23 02:44 Pulse Rate 120 H 06/03/23 02:44 Respiratory Rate 18 06/03/23 02:44 Blood Pressure 125/82 06/03/23 02:44 Pulse Oximetry 94 06/03/23 02:44 Oxygen Delivery Method Room Air 06/03/23 02:44 Temperature 96.7 F L 06/03/23 02:44 Pulse Rate 120 H 06/03/23 02:44 Respiratory Rate 18 06/03/23 02:44 Blood Pressure 125/82 06/03/23 02:44 Pulse Oximetry 94 06/03/23 02:44 Oxygen Delivery Method Room Air 06/03/23 02:44 Medications Administered Medications: Generic Name Dose Route Start Last Admin Trade Name Freq PRN Reason Stop Dose Admin Sodium Chloride 1,000 mls @ 1,000 mls/hr 06/03/23 03:03 06/03/23 03:26 0.9 % Sodium Chloride 1000 Ml IV 06/03/23 04:02 1,000 mls/hr .Q1H ASHOK Administration Ondansetron HCl 4 mg 06/03/23 03:02 06/03/23 03:26 Ondansetron 2 Mg/Ml Inj IVP 06/03/23 03:03 4 mg ONCE ONE Administration Medical Decision Making Lab Data Lab results reviewed: Yes I reviewed the patient's lab results Lab results narrative: Reassuring. Labs: Lab Results 06/03/23 06/03/23 Range/Units 02:55 03:10 WBC 10.94 (4.50-11.00) K/uL RBC 5.06 (4.30-5.90) m/uL Hgb 15.8 (13.5-17.5) gm/dL Hct 46.7 (37.0-53.0) % MCV 92 (80-100) fL MCH 31 (26-34) pg MCHC 34 (32-36) gm/dL RDW Coeff of Rodriguez 12.5 (11.5-15.5) % Plt Count 193 (140-440) K/uL Neut % (Auto) 87.2 H (42.0-72.0) % Lymph % (Auto) 7.8 L (20-44) % [place] % (Auto) 4.4 (0.0-11.0) % Eos % (Auto) 0.2 (0.0-7.0) % Baso % (Auto) 0.1 (0.0-3.0) % Neut # (Auto) 9.50 H (1.7-7.0) K/uL Lymph # (Auto) 0.90 (0.90-2.90) K/uL [place] # (Auto) 0.50 (0.00-0.90) K/UL Eos # (Auto) 0.02 (0.00-0.50) K/uL Baso # (Auto) 0.01 (0.00-0.30) K/uL Abs Immat Gran (auto) 0.03 (0.00-0.30) K/uL Imm/Tot Granulo (auto) 0.3 % Sodium 136 (135-149) mmol/L Potassium 3.5 L (3.6-5.1) mmol/L Chloride 101 (96-114) mmol/L Carbon Dioxide 26 (20-32) mmol/L Anion Gap 9 (7-15) mEq/L BUN 28 (7-30) mg/dL Creatinine 1.1 (0.5-1.5) mg/dL Estimated GFR 71 ml/min Glucose 114 (60-115) mg/dL Calcium 9.2 (8.4-10.6) mg/dL Magnesium 1.5 (1.5-2.6) mg/dL Total Bilirubin 0.7 (0.1-1.5) mg/dL AST 38 H (12-35) U/L ALT 33 (4-50) U/L Alkaline Phosphatase 67 (40-150) U/L C-Reactive Protein 1.4 H (0.5-1.0) mg/dL Total Protein 7.5 (6.0-8.3) g/dL Albumin 4.5 (3.3-5.0) g/dL Lipase 92 (23-300) U/L SARS-CoV-2 (PCR) Negative SARS-CoV-2 (Negative) Influenza Type A (PCR) Negative PCR FLU A (Negative) Influenza Type B (PCR) Negative PCR FLU B (Negative) RSV (PCR) Negative PCR RSV (Negative) Discharge Plan Discharge Clinical Impression: Myoclonic jerking while sleeping Patient Disposition: Home w/ Parent or Adult Condition: Stable Additional Instructions: As we discussed, I believe that the jerking motions that you are describing are consistent with myoclonic jerks associated with sleep. These are not really seizures. All of your lab work looks fine, there is no evidence of a dangerous health condition tonight. Your given anti nausea medicine and IV fluid. Per your request, I have given you a small supply of a muscle relaxant to take at bedtime to see if this improves her symptoms. You need to schedule a sleep study and follow-up appointment with your primary care provider. It is okay to use 10 mg of melatonin and or Tylenol p.m. to help with sleep as well. The should typically be tried before coming to emergency department for poor sleep. You may continue to take the rest of your medications as prescribed. Activity Level: No Restrictions Discharge Diet: Regular Prescriptions: No Action losartan 100 mg tablet 100 mg PO DAILY meloxicam 7.5 mg tablet 7.5 mg PO DAILY azelastine 137 mcg (0.1 %) aerosol,spray 2 spray intranasal BID PRN Rx Instructions: administer into each nostril Zyrtec 10 mg capsule 10 mg PO DAILY PRN pantoprazole 40 mg tablet,delayed release (DR/EC) 40 mg PO DAILY hydrochlorothiazide 12.5 mg tablet 12.5 mg PO DAILY simvastatin 40 mg tablet 40 mg PO DAILY amlodipine 5 mg tablet 5 mg PO DAILY cholecalciferol (vitamin D3) [Vitamin D3] 50 mcg (2,000 unit) capsule 50 mcg PO DAILY Paxlovid 300 mg (150 mg x 2)-100 mg tablets,dose pack See Rx Instructions .ROUTE .COMPLEX Qty: 30 0RF Rx Instructions: take TWO 150 mg tablets of nirmatrelvir with ONE 100 mg tablet of ritonavir twice daily for 5 days ondansetron 4 mg tablet,disintegrating 4 mg PO DAILY PRN (Reason: nausea and vomiting) 5 Days Qty: 14 0RF Follow Up/Referrals: Duran Sprague MD [Primary Care Provider] - Stand Alone Forms: [facility] Info Instructions
--- OUTSIDE RECORDS SUMMARY | 2023-06-03 03:25 | XMS_ITS | Continuity of Care Document ---
Author Name Unknown Organization [facility] Address [address] [address] [place] [address] Phone Care Team Providers Care Furniture Servicer Name Role Phone Nam Gonzalez MD, Sreedhar Unavailable Unavailabl e Advance Directives Directive Yes / No Effective Date File Name No Information Encounters Encounter Description Practice Location Reason(s) For Visit Diagnoses Date Provider Providers Copied on Encounter [facility], [address] [address], [place], [place], [id number], [place] tel:[phone] [facility] No Information Nam Eli. [address] [facility] [facility] [address], [place], [place], [id number], [place]. tel:[phone] Family History Family Member Type Diagnosis Age At Onset No Information Payers Payer name Insurance type Covered constitution party ID Authoriza tion(s) No Information Social History Type Description Quantity Date Captured Comments Sex Male Smoking Status No Information Chief Complaint And Reason For Visit No Information Reason For Referral Reason For Referral No Information History Of Present Illness Encounter Date Complaint History Of Prese nt Illness No Information Functional Status Date Functional Assessmen t No Information Instructions Date Instruction Additional Infor mation No Information Assessments Type Assessment Date No Information Patient Care Teams Name Effective Dates (start - stop) Status Members No Information
[2023-06-03] MEDS: ONDANSETRON 2 MG/ML inj 4 MG IVP (03:26)
[2023-06-03] MEDS: 0.9 % SODIUM CHLORIDE 1000 ml 1,000 ML IV (03:26)
[2023-06-03 03:33] LABS: Basophils Absolute Auto 0.01 K/uL (0.00-0.30); Basophils Percent Auto 0.1 % (0.0-3.0); Eosinophils Absolute Auto 0.02 K/uL (0.00-0.50); Eosinophils Percent Auto 0.2 % (0.0-7.0); Hematocrit 46.7 % (37.0-53.0); Hemoglobin* 15.8 gm/dL (13.5-17.5); Immature Granulocytes Abs Auto 0.03 K/uL (0.00-0.30); Immature Granulocytes Pct Auto 0.3 %; Lymphocytes Percent Auto 7.8 % (20-44); Mean Corpuscular HGB Conc 34 gm/dL (32-36); Mean Corpuscular Hemoglobin 31 pg (26-34); Mean Corpuscular Volume 92 fL (80-100); Monocytes Percent Auto 4.4 % (0.0-11.0); Neutrophils Percent Auto 87.2 % (42.0-72.0); Platelet Count* 193 K/uL (140-440); RDW Coefficient of Variation % 12.5 % (11.5-15.5); Red Blood Count 5.06 m/uL (4.30-5.90); White Blood Count* 10.94 K/uL (4.50-11.00)
[2023-06-03 03:34] LABS: PCR FLU A Negative PCR FLU A (Negative); PCR FLU B Negative PCR FLU B (Negative); PCR RSV Negative PCR RSV (Negative)
[2023-06-03 03:40] LABS: Slide Review Reflex No
[2023-06-03 03:42] LABS: SARS PCR* Negative SARS-CoV-2 (Negative)
[2023-06-03 03:46] LABS: Albumin* 4.5 g/dL (3.3-5.0); Chloride* 101 mmol/L (96-114); Sodium* 136 mmol/L (135-149)
[2023-06-03 03:47] LABS: Potassium* 3.5 mmol/L (3.6-5.1)
[2023-06-03 03:49] LABS: Bilirubin Total* 0.7 mg/dL (0.1-1.5); Creatinine* 1.1 mg/dL (0.5-1.5); Estimated Glomerular Filt Rate 71 ml/min
[2023-06-03 03:50] LABS: Alanine Aminotransferase* 33 U/L (4-50); Alkaline Phosphatase* 67 U/L (40-150); Anion Gap 9 mEq/L (7-15); Aspartate Amino Transferase* 38 U/L (12-35); Blood Urea Nitrogen* 28 mg/dL (7-30); Calcium* 9.2 mg/dL (8.4-10.6); Carbon Dioxide* 26 mmol/L (20-32); Glucose* 114 mg/dL (60-115); Lipase* 92 U/L (23-300); Magnesium* 1.5 mg/dL (1.5-2.6); Total Protein* 7.5 g/dL (6.0-8.3)
[2023-06-03 03:52] LABS: C Reactive Protein* 1.4 mg/dL (0.5-1.0)
== END 2023-06-03 04:40 | disposition home or self-care (01) ==
PROVIDERS: Emergency Provider Family Medicine; PCP Family Medicine
DX: G25.3 Myoclonus (principal); G47.69 Other sleep related movement disorders
CPT/HCPCS: 36415; 80053; 83690; 83735; 85025; 86140; 87631; 96361; 96374; 99284; J2405; J7030